=== PATIENT | female | born 1995 | race Caucasian/White ===

== ENCOUNTER 2019-09-02 19:46 | Inpatient (IN) ==
[2019-09-02] MEDS ORDERED: PEPCID IV PRN (19:51)
[2019-09-02] MEDS ORDERED: KEFZOL 1 GM/D5W 1 GM/50 ML IVPB IV PRN (19:51)
[2019-09-02] MEDS ORDERED: REGLAN PO ONE (19:51)
[2019-09-02] MEDS ORDERED: PEPCID PO ONE (19:51)
[2019-09-02] MEDS ORDERED: PEPCID PO PRN (19:51)
[2019-09-02] MEDS ORDERED: TYLENOL PO PRN (19:51)
[2019-09-02] MEDS ORDERED: STADOL IV PRN ×2 (19:51)
[2019-09-02] MEDS ORDERED: AMBIEN PO PRN (19:51)
[2019-09-02] MEDS ORDERED: BRETHINE SUBQ PRN (19:51)
[2019-09-02] MEDS ORDERED: PITOCIN 30 UNITS/NS 30 UNIT/500 ML IV.SOLN IV SCH (20:00)
[2019-09-02] MEDS ORDERED: MINERAL OIL MISC ONE (20:04)
[2019-09-02] MEDS ORDERED: XYLOCAINE-MPF 1% INJ ONE (20:04)
[2019-09-02] MEDS: LR 1,000 ML IV ONE (20:15)
--- NOTE | 2019-09-02 20:15 | HISTORY AND PHYSICAL ---
HISTORY OF PRESENT ILLNESS: Ms García is a 24-year-old G2, P0-0-1-0 at 39 weeks and 5 days who presents to Labor and Delivery for scheduled induction of labor. The patient reports good movement. Denies contractions, leakage of fluid or bleeding. PAST MEDICAL HISTORY: Asthma. PAST SURGICAL HISTORY: Appendectomy, cholecystectomy, intestinal surgery, left knee surgery. MEDICATIONS: vitamins. ALLERGIES: Erythromycin reaction rash. OBSTETRICAL HISTORY: G2, P0-0-1-0, 1 prior SAB. [employer] HISTORY: Denies STD exposure, regular menses. FAMILY HISTORY: Noncontributory. SOCIAL HISTORY: Positive tobacco use and positive vaping use. Admits to cessation with current . Denies alcohol or drug use. VITAL SIGNS: Height 5 feet 2 inches, weight 192 pounds, body mass index 35.1 kg/m2, temperature 97.6 degrees Fahrenheit, pulse rate 81, blood pressure 117/78. PHYSICAL EXAM: GENERAL: No acute distress, alert, awake, oriented x3. CARDIOVASCULAR: Regular rate and rhythm. Positive S1, S2. RESPIRATORY: Clear to auscultation. Negative rhonchi, rales or wheezing. ABDOMEN: Gravid, soft, nontender to palpation. PELVIC: Sterile vaginal exam closed, 30% effaced, high. LABS: GBS negative. ASSESSMENT: Ms García is a 24-year-old G2, P0-0-1-0 at 39 weeks and 5 days who presents for scheduled induction of labor. PLAN: 1. Admit to Labor and Delivery. 2. Obtain routine labor labs. 3. Plan for induction with Cytotec 25 mcg per vagina q.4 hours. 4. Continuous monitoring. 5. Pain management with IV pain medications and/or epidural p.r.n. 6. Patient counseled on risks, benefits and alternatives to scheduled induction of labor with expected vaginal delivery. Risks not limited to bleeding, fever, infection, vaginal lacerations and emergency . The patient understands risk and agrees to said procedure. 7. Estimated weight 7-1/2 pounds. 8. Anticipate vaginal delivery.
[2019-09-02 20:24] LABS: URINE SOURCE VOIDED
[2019-09-02 20:29] LABS: BILIRUBIN URINE NEGATIVE (NEGATIVE); BLOOD URINE NEGATIVE (NEGATIVE); COLOR YELLOW; GLUCOSE URINE NEGATIVE (NEGATIVE); KETONE URINE NEGATIVE (NEGATIVE); LEUKOCYTES URINE NEGATIVE (NEGATIVE); NITRITE URINE NEGATIVE (NEGATIVE); PH URINE 6.5; PROTEIN URINE NEGATIVE (NEGATIVE); SP GRAVITY URINE 1.028; TURBIDITY URINE CLEAR (CLEAR); UROBILINOGEN URINE NORMAL (NORMAL)
[2019-09-02 20:29] LABS: BASO# 0.02 X1000 (0.0-0.2); BASO% 0.2 % (0.0-0.8); EOS# 0.05 X1000 (0.0-0.7); EOS% 0.4 % (0.0-10.0); HEMOGLOBIN 11.5 g/dL (12.0-16.0); LYMPH# 2.19 X1000 (1.2-3.4); LYMPH% 17.6 % (20.5-51.1); MCH 28.3 PG (27-31); MCHC 33.8 g/dL (33-37); MCV 83.5 FL (81-99); MONO# 1.23 X1000 (0.11-0.59); MONO% 9.9 % (1.7-9.3); MPV 11.7 FL (7.4-10.4); NEUT# 8.94 X1000 (1.4-6.5); NEUT% 71.9 % (42.2-75.2); PLT 205 X1000 (130-400); RBC 4.07 XMIL (4.2-5.4); RDW 13.6 % (11.5-14.5); WBC 12.43 X1000 (4.8-10.8)
[2019-09-02 20:58] LABS: UR AMPHETAMINES QUAL NONE DETECTED (NONE DETECT); UR BARBITUATES QUAL NONE DETECTED (NONE DETECT); UR BENZODIAZEPIN QUAL NONE DETECTED (NONE DETECT); UR CANNABINOIDS QUAL NONE DETECTED (NONE DETECT); UR COCAINE QUAL NONE DETECTED (NONE DETECT); UR METHADONE QUAL NONE DETECTED (NONE DETECT); UR OPIATES QUAL NONE DETECTED (NONE DETECT); UR OXYCODONE QUAL NONE DETECTED (NONE DETECT); UR PCP QUAL NONE DETECTED (NONE DETECT)
[2019-09-02] MEDS ORDERED: CYTOTEC VAG ONE (21:00)
[2019-09-03] MEDS: CYTOTEC VAG SCH ×3 (01:00→09:08)
[2019-09-03] MEDS: LR 1,000 ML IV ONE ×2 (04:56→11:57)
[2019-09-03] MEDS: STADOL IV PRN ×3 (05:31→12:38)
[2019-09-03] MEDS: ZOFRAN IV PRN ×2 (08:59→19:15)
[2019-09-03] MEDS ORDERED: LR 1,000 ML IV SCH (12:00)
--- NOTE | 2019-09-03 12:16 | OB/GYN PROGRESS NOTE ---
- Subjective Pt seen and examined s/p cytotec induction. Reports regular contractions, pain no longer controlled with IV pain meds. Requesting epidural. Admits to good FM, denies LOF/VB OB Physical Exam Vital Signs - 8 hr 09/03/19 07:15 Temperature 97.2 F L Pulse Rate 76 Respiratory Rate 20 Blood Pressure 111/76 O2 Sat by Pulse Oximetry 98 - CONSTITUTIONAL General Appearance: appears well, alert, no apparent distress - GASTROINTESTINAL (ABDOMEN) Abdominal Exam: non tender - GENITOURINARY Vaginal Exam: AROM - clear fluid Cervica Dilation: 4 cm Cervical Effacement: 70% Station: -3 Heart Rate: 115 bpm, mod variability, -acceles, -decels Active Medications Generic Name Dose Route Start Last Admin Trade Name Freq PRN Reason Stop Dose Admin Acetaminophen 650 mg 09/02/19 19:51 Tylenol PO Q4-6H PRN PRN Headache Butorphanol Tartrate 1 mg 09/02/19 19:51 Stadol IV Q2H PRN PRN Pain (1-4 on Pain Scale) Butorphanol Tartrate 2 mg 09/02/19 19:51 09/03/19 09:05 Stadol IV 2 mg Q2H PRN PRN Administration Pain (5-10 on Pain Scale) Butorphanol Tartrate 2 mg 09/02/19 19:51 Stadol IV PRN PRN Pain Famotidine 20 mg 09/02/19 19:51 Pepcid PO Q12H PRN PRN GI upset or indigestion Famotidine 20 mg 09/02/19 19:51 Pepcid IV Q12H PRN PRN GI upset or indigestion Cefazolin Sodium/Dextrose 1 gm in 50 mls @ 100 mls/hr 09/02/19 19:51 Kefzol 1 Gm/D5w IV ONCE PRN PRN section Oxytocin/Sodium Chloride 30 unit in 500 mls @ 0 mls/hr 09/02/19 20:00 Pitocin 30 Units/Ns IV .Q0M NORA As Directed Lactated Ringer's 1,000 mls @ 0 mls/hr 09/03/19 12:00 Lr IV .Q0M NORA As Directed Misoprostol 25 microgm 09/03/19 01:00 09/03/19 09:08 Cytotec VAG 09/03/19 21:01 25 microgm Q4H NORA Administration Ondansetron HCl 4 mg 09/02/19 19:51 09/03/19 08:59 Zofran IV 4 mg PRN PRN Administration Nausea Terbutaline Sulfate 0.25 mg 09/02/19 19:51 Brethine SUBQ PRN PRN tachysystole/hypertonus Zolpidem Tartrate 10 mg 09/02/19 19:51 Ambien PO HS PRN PRN Sleep Laboratory Results - last 24 hr 09/02/19 09/02/19 09/02/19 20:00 20:00 20:15 WBC RBC Hgb Hct MCV MCH MCHC RDW Std Deviation Plt Count MPV Neut % (Auto) Lymph % (Auto) [place] % (Auto) Eos % (Auto) Baso % (Auto) Neut # (Auto) Lymph # (Auto) [place] # (Auto) Eos # (Auto) Baso # (Auto) Urine Source VOIDED Urine Color YELLOW Urine Turbidity CLEAR Urine pH 6.5 Ur Specific [place] 1.028 Urine Protein NEGATIVE Ur Glucose (Stick) NEGATIVE Ur Ketones (Stick) NEGATIVE Urine Blood NEGATIVE Urine Nitrite NEGATIVE Urine Bilirubin NEGATIVE Urobilinogen Dipstick NORMAL Urine Leukocytes NEGATIVE Urine Opiates Screen NONE DETECTED Ur Oxycodone Screen NONE DETECTED Ur Methadone, Qual NONE DETECTED Ur Barbiturates Screen NONE DETECTED Ur Phencyclidine Scrn NONE DETECTED Ur Amphetamines Screen NONE DETECTED U Benzodiazepines Scrn NONE DETECTED Urine Cocaine Screen NONE DETECTED U Cannabinoids Screen NONE DETECTED RPR NON-REACTIVE 09/02/19 20:15 WBC 12.43 H RBC 4.07 L Hgb 11.5 L Hct 34.0 L MCV 83.5 MCH 28.3 MCHC 33.8 RDW Std Deviation 13.6 Plt Count 205 MPV 11.7 H Neut % (Auto) 71.9 Lymph % (Auto) 17.6 L [place] % (Auto) 9.9 H Eos % (Auto) 0.4 Baso % (Auto) 0.2 Neut # (Auto) 8.94 H Lymph # (Auto) 2.19 [place] # (Auto) 1.23 H Eos # (Auto) 0.05 Baso # (Auto) 0.02 Urine Source Urine Color Urine Turbidity Urine pH Ur Specific [place] Urine Protein Ur Glucose (Stick) Ur Ketones (Stick) Urine Blood Urine Nitrite Urine Bilirubin Urobilinogen Dipstick Urine Leukocytes Urine Opiates Screen Ur Oxycodone Screen Ur Methadone, Qual Ur Barbiturates Screen Ur Phencyclidine Scrn Ur Amphetamines Screen U Benzodiazepines Scrn Urine Cocaine Screen U Cannabinoids Screen RPR OB Assessment & Plan (1) Elective induction of labor planned Status: Acute Plan: 24yo @ 39w 6d presents for scheduled IOL -s/p cytotec 25 mcg PV -AROM - clear -IV pain meds, requesting epidural -GBS negative -Plan for pitocin s/p epidural -EFW 7.5 lbs -anticipate vaginal delivery -con't external monitoring
[2019-09-03] MEDS ORDERED: MARCAINE 0.25% PF INJ PRN (12:21)
[2019-09-03] MEDS ORDERED: FENTANYL-BUPIV-NS 500 MCG-0.125% 250 ML EPIDURAL SCH (13:00)
[2019-09-03] MEDS ORDERED: BENADRYL IV PRN (22:36)
[2019-09-03] MEDS ORDERED: BENADRYL PO PRN (22:36)
[2019-09-03] MEDS ORDERED: BOOSTRIX VACCINE IM ONE (22:36)
[2019-09-03] MEDS ORDERED: ATARAX PO PRN (22:36)
[2019-09-03] MEDS ORDERED: XYLOCAINE-MPF 1% INJ PRN (22:36)
[2019-09-03] MEDS ORDERED: M-M-R II VACCINE SUBQ ONE (22:36)
[2019-09-03] MEDS ORDERED: HYDROXYZINE IM PRN (22:36)
[2019-09-03] MEDS ORDERED: PERI MEDS (DERMOPLAST/NUPERCAINAL/TUCKS) MISC PRN (22:36)
[2019-09-03] MEDS ORDERED: AMBIEN PO PRN (22:36)
[2019-09-03] MEDS ORDERED: CYTOTEC PO PRN (22:36)
[2019-09-03] MEDS ORDERED: PITOCIN IM PRN (22:36)
[2019-09-03] MEDS ORDERED: MINERAL OIL PO PRN (22:36)
[2019-09-03] MEDS ORDERED: PITOCIN 20 UNITS/NS 20 UNITS/1,000 ML IV.SOLN IV SCH (22:45)
[2019-09-03] MEDS ORDERED: PITOCIN 30 UNITS/NS 30 UNIT/500 ML IV.SOLN IV SCH (22:45)
--- NOTE | 2019-09-04 00:03 | OPERATIVE NOTE ---
PROCEDURE DATE: 09/03/2019 PROCEDURE PERFORMED: Spontaneous vaginal delivery. SURGEON: Dr. Alverto Mercedes. OPENSTACK CLOUD CONSULTING ARCHITECT: None. DESCRIPTION OF PROCEDURE: The patient delivered a viable male weighing 8 pounds with Apgars of 3, 7 and 9 at 1, 5 and 10 minutes respectively. The vertex was delivered spontaneously over intact perineum. No nuchal cord was identified. The anterior shoulders were delivered atraumatically by maternal expulsive efforts and the assistance of downward traction. The posterior shoulder delivered with maternal expulsive efforts and upward traction. The remainder of the fetus delivered spontaneously. Upon delivery the fetus was placed on the patient's abdomen. The cord was clamped and cut and cord blood was obtained for analysis. The placenta was then delivered spontaneously intact, a 3-vessel cord was noted. To enhance uterine contractions IV oxytocin was administered. The cervix, vagina and perineum were inspected for lacerations. A first-degree right vaginal wall laceration was noted and repaired using 2-[address] needle. Good hemostasis was obtained with a running locked fashion stitch. ESTIMATED BLOOD LOSS: 300 mL.
[2019-09-04] MEDS: MOTRIN PO SCH ×3 (00:44→20:37)
[2019-09-04 05:18] LABS: HEMATOCRIT 28.4 % (37.0-47.0); HEMOGLOBIN 9.3 g/dL (12.0-16.0); MCH 27.8 PG (27-31); MCHC 32.7 g/dL (33-37); MCV 84.8 FL (81-99); MPV 11.6 FL (7.4-10.4); RBC 3.35 XMIL (4.2-5.4); RDW 13.6 % (11.5-14.5); WBC 19.83 X1000 (4.8-10.8)
--- NOTE | 2019-09-04 09:19 | OB/GYN PROGRESS NOTE ---
- Candelaria Sequeira is a 24 you CF, now , who underwent a on yesterday. She is doing well and does not have complaints at the present time. Her pain is controlled and she ambulates well top the rest room. Her lochia is light in flow. She is breast feeding. OB Physical Exam Vital Signs - 8 hr 09/04/19 04:00 09/04/19 07:59 Temperature 98.8 F 97.5 F L Pulse Rate 57 L 65 Respiratory Rate 18 16 Blood Pressure 113/61 108/58 O2 Sat by Pulse Oximetry 95 98 - CONSTITUTIONAL General Appearance: appears well, alert, no apparent distress - CARDIOVASCULAR Cardiovascular: regular rate, rhythm - GASTROINTESTINAL (ABDOMEN) Abdominal Exam: normal bowel sounds, non tender, soft - GENITOURINARY Female Genitalia/Pelvic Exam: deferred - MUSCULOSKELETAL Back Exam: normal inspection, no CVA tenderness Extremity: no calf tenderness - SKIN Integumentary: normal color, warm/dry - PSYCHIATRIC Psych/Mental Status: normal mood/affect Active Medications Generic Name Dose Route Start Last Admin Trade Name Freq PRN Reason Stop Dose Admin Acetaminophen 650 mg 09/02/19 19:51 Tylenol PO Q4-6H PRN PRN Headache Benzocaine 1 each 09/03/19 22:36 09/04/19 02:48 Samreen Meds (Dermoplast/Nupercainal/Tucks) MISC 1 applic 3-4XDAY PRN PRN Administration episiotomy/hemorrhoids Bupivacaine HCl 30 ml 09/03/19 12:21 09/03/19 12:53 Marcaine 0.25% Pf INJ 30 ml DIRECTED PRN Administration Butorphanol Tartrate 1 mg 09/02/19 19:51 Stadol IV Q2H PRN PRN Pain (1-4 on Pain Scale) Butorphanol Tartrate 2 mg 09/02/19 19:51 09/03/19 12:38 Stadol IV 2 mg Q2H PRN PRN Administration Pain (5-10 on Pain Scale) Butorphanol Tartrate 2 mg 09/02/19 19:51 Stadol IV PRN PRN Pain Diphenhydramine HCl 12.5 mg 09/03/19 22:36 Benadryl IV Q4H PRN PRN Itching Diphenhydramine HCl 25 mg 09/03/19 22:36 Benadryl PO Q4H PRN PRN Itching Famotidine 20 mg 09/02/19 19:51 Pepcid PO Q12H PRN PRN GI upset or indigestion Famotidine 20 mg 09/02/19 19:51 Pepcid IV Q12H PRN PRN GI upset or indigestion Hydroxyzine HCl 50 mg 09/03/19 22:36 Atarax PO Q3-4H PRN PRN Nausea Hydroxyzine HCl 50 mg 09/03/19 22:36 Hydroxyzine IM Q3-4H PRN PRN Nausea Cefazolin Sodium/Dextrose 1 gm in 50 mls @ 100 mls/hr 09/02/19 19:51 Kefzol 1 Gm/D5w IV ONCE PRN PRN section Lactated Ringer's 1,000 mls @ 0 mls/hr 09/03/19 12:00 09/03/19 13:09 Lr IV 125 mls/hr .Q0M NORA Administration As Directed Fentanyl/Bupivacaine/Sodium Chlor 250 mls @ 0 mls/hr 09/03/19 13:00 09/03/19 12:58 Gkjjkolt-Mppfs-Ju 500 Mcg-0.125% EPIDURAL 12 mls/hr DIRECTED NORA Administration As Directed Oxytocin/Sodium Chloride 20 units in 1,000 mls @ 0 mls/hr 09/03/19 22:45 09/03/19 22:40 Pitocin 20 Units/Ns IV 125 mls/hr .Q0M NORA Administration As Directed Ibuprofen 800 mg 09/03/19 22:45 09/04/19 00:44 Motrin PO 800 mg Q8H PRN NORA Administration Lidocaine HCl 30 ml 09/03/19 22:36 Xylocaine-Mpf 1% INJ PRN PRN Perineal repair Mineral Oil 30 ml 09/03/19 22:36 Mineral Oil PO PRN PRN Perineal massage Misoprostol 800 microgm 09/03/19 22:36 Cytotec PO PRN PRN Severe bleeding Ondansetron HCl 4 mg 09/02/19 19:51 09/03/19 19:15 Zofran IV 4 mg PRN PRN Administration Nausea Oxytocin 20 unit 09/03/19 22:36 Pitocin IM PRN PRN Severe bleeding Senna/Docusate Sodium 1 each 09/04/19 21:00 Pericolace PO QHS NORA Terbutaline Sulfate 0.25 mg 09/02/19 19:51 Brethine SUBQ PRN PRN tachysystole/hypertonus Zolpidem Tartrate 10 mg 09/02/19 19:51 Ambien PO HS PRN PRN Sleep Zolpidem Tartrate 10 mg 09/03/19 22:36 Ambien PO HS PRN PRN Sleep Laboratory Results - last 24 hr 09/04/19 04:58 WBC 19.83 H RBC 3.35 L Hgb 9.3 L D Hct 28.4 L MCV 84.8 MCH 27.8 MCHC 32.7 L RDW Std Deviation 13.6 Plt Count 165 MPV 11.6 H OB Assessment & Plan (1) (normal spontaneous vaginal delivery) Status: Acute Plan: 1. Continue PP management 2. Pt may shower 3. Probable discharge on tomorrow (2) Anemia Status: Acute Plan: Begin Fe2+ supplementation & stool softener
[2019-09-04] MEDS ORDERED: PERICOLACE PO SCH (21:00)
[2019-09-05] MEDS: MOTRIN PO SCH (11:36)
[2019-09-05 11:38] VITALS: BP 117/74
== END 2019-09-05 15:50 | disposition home or self-care (01) | DRG 807 ==
LOC: LD 19:46
PROVIDERS: ADMIT Obstetrics & Gynecology; ATTEND Obstetrics & Gynecology